=== PATIENT | female | born 1965 | race Caucasian/White ===

== ENCOUNTER 2017-09-17 22:11 | Inpatient (IN) | payer MEDICARE, MEDICAID ==
--- NOTE | 2017-09-17 22:20 | EDM.PDOC ---
ED HPI GENERAL MEDICAL PROBLEM - General Stated Complaint: DIFFICULTY BREATHING [id number] Time Seen by Provider: 09/17/17 22:15 Source of Information: Reports: Patient History Limitations: Reports: No Limitations - History of Present Illness INITIAL COMMENTS - FREE TEXT/NARRATIVE: ED with c/o difficulty breathing, hx asthma COPD a fib. Pneumonia in "july or August" has not returned to baseline. Inarea visiting family, Increasing difficulty over past few days. has been on Steroid taper down today from 40 to 20mg. 2 Neb treatment [employer] without relief. Non productive cough no fever, Is not oxygen dependent. No fever or chills. Chest Pain Score (Numeric/FACES): 3 - Related Data Allergies Allergy/AdvReac Type Severity Reaction Status Date / Time acetaminophen [From Percocet] Allergy Itching Verified 09/17/17 22:24 oxycodone [From Percocet] Allergy Itching Verified 09/17/17 22:24 propoxyphene Allergy Itching Verified 09/17/17 22:24 [From Darvocet-N] Home Meds: Home Meds Aclidinium [place] [Tudorza Pressair] 400 mcg IH DAILY 09/17/17 [History] Albuterol [Proventil HFA] 2 puff INH Q4H PRN 09/17/17 [History] Aspirin [Halfprin] 81 mg PO DAILY 09/17/17 [History] Fluticasone/Vilanterol [Breo Ellipta 100-25 MCG Inhalation Kit] 1 each IH DAILY 09/17/17 [History] amLODIPine Besylate [Norvasc] 2.5 mg PO DAILY 09/17/17 [History] atorvaSTATin [Lipitor] 20 mg PO DAILY 09/17/17 [History] hydrOXYzine HCl [Atarax] 25 mg PO DAILY 09/17/17 [History] predniSONE [Prednisone] 20 mg PO DAILY 09/17/17 [History] ED ROS GENERAL - Review of Systems Review Of Systems: ROS reveals no pertinent complaints other than HPI. ED EXAM, GENERAL - Physical Exam Exam: See Below Exam Limited By: No Limitations General Appearance: Alert, Moderate Distress Eye Exam: Bilateral Eye: EOMI Ears: Normal External Exam Nose: Normal Inspection Throat/Mouth: Normal Inspection Head: Atraumatic, Normocephalic Neck: Normal Inspection Respiratory/Chest: Wheezing (inspiratory, expiratory throughout.) Cardiovascular: Regular Rate, Rhythm, Tachycardia (sinus) GI/Abdominal: Normal Bowel Sounds Extremities: Pedal Edema (1=) Neurological: Alert, Oriented, Normal Cognition Psychiatric: Anxious Course - Vital Signs Last Recorded V/S: Last Vital Signs Temp 98.9 F 09/18/17 04:00 Pulse 113 H 09/18/17 04:00 Resp 24 H 09/18/17 04:00 BP 120/62 09/18/17 04:00 Pulse Ox 95 09/18/17 04:00 - Orders/Labs/Meds Orders: Active Orders 24 hr Category Date Time Status RT Aerosol Therapy [RC] ASDIRECTED Care 09/17/17 22:25 Active RT Aerosol Therapy [RC] ASDIRECTED Care 09/17/17 23:37 Active ABG [BLOOD GAS ARTERIAL] [BG] Stat Lab 09/17/17 22:51 Ordered Medication Orders Albuterol/Ipratropium (Duoneb 3.0-0.5 Mg/3 Ml) 3 ml NEB Q4HRRT [facility] Last Admin: 09/18/17 03:36 Dose: 3 ml Admin: 09/18/17 01:03 Dose: 3 ml Amlodipine Besylate (Norvasc) 5 mg PO DAILY [facility] Atorvastatin Calcium (Lipitor) 10 mg PO BEDTIME [facility] Benzonatate (Tessalon Perles) 100 mg PO QID PRN PRN Reason: Cough Last Admin: 09/18/17 01:50 Dose: 100 mg Guaifenesin/Phenylephrine HCl (Robitussin Dm) 10 ml PO Q6H PRN PRN Reason: Cough Heparin Sodium (Porcine) (Heparin Sodium) 5,000 units SUBCUT Q12H [facility] Last Admin: 09/18/17 01:03 Dose: 5,000 units Azithromycin 500 mg/ Sodium (Chloride) 250 mls @ 250 mls/hr IV Q24H [facility] Last Admin: 09/18/17 01:47 Dose: 250 mls/hr Sodium Chloride (Normal Saline) 1,000 mls @ 125 mls/hr IV ASDIRECTED [facility] Last Admin: 09/18/17 04:32 Dose: 125 mls/hr Levothyroxine Sodium (Levothyroxine) 25 mcg PO ACBREAKFAST [facility] Last Admin: 09/18/17 06:18 Dose: 25 mcg Methylprednisolone Sodium Succinate (Solu-Medrol) 125 mg IVPUSH Q8H [facility] Last Admin: 09/18/17 06:18 Dose: 125 mg Nicotine (Habitrol) 14 mg TRDERM DAILY [facility] Labs: Laboratory Tests 09/17/17 09/17/17 09/17/17 Range/Units 22:25 22:25 22:25 WBC 13.7 H (5.0-10.0) 10^3/uL RBC 5.51 H (4.2-5.4) 10^6/uL Hgb 17.7 H (12.0-16.0) g/dL Hct 51.9 H (37.0-47.0) % MCV 94.2 (80-100) fL MCH 32.1 (27.0-34.0) pg MCHC 34.1 (33.0-35.0) g/dL Plt Count 247 (150-450) 10^3/uL Neut % (Auto) 68.0 (42.2-75.2) % Lymph % (Auto) 22.4 (20.5-50.1) % [place] % (Auto) 9.1 H (2-8) % Eos % (Auto) 0.4 L (1.0-3.0) % Baso % (Auto) 0.1 (0.0-1.0) % D-Dimer, Quantitative 770 H (0-400) ng/mL Sodium (135-145) mmol/L Potassium (3.6-5.0) mmol/L Chloride (101-111) mmol/L Carbon Dioxide (21.0-31.0) mmol/L Anion Gap BUN (7-18) mg/dL Creatinine (0.6-1.3) mg/dL Est Cr Clr Drug Dosing mL/min Estimated GFR (MDRD) BUN/Creatinine Ratio Glucose (74-105) mg/dL Lactic Acid 2.3 H (0.5-2.2) mmol/L Calcium (8.4-10.2) mg/dl Phosphorus (2.5-4.6) mg/dL Magnesium (1.8-2.5) mg/dL Total Bilirubin (0.2-1.0) mg/dL AST (10-42) IU/L ALT (10-60) IU/L Alkaline Phosphatase (42-121) IU/L CK-MB (CK-2) (0.4-4.7) ng/mL Troponin I (0.00-0.02) ng/ml B-Natriuretic Peptide (0-100) pg/ml Total Protein (6.7-8.2) g/dl Albumin (3.2-5.5) g/dl Globulin Albumin/Globulin Ratio 09/17/17 09/17/17 09/17/17 Range/Units 22:55 22:55 22:55 WBC (5.0-10.0) 10^3/uL RBC (4.2-5.4) 10^6/uL Hgb (12.0-16.0) g/dL Hct (37.0-47.0) % MCV (80-100) fL MCH (27.0-34.0) pg MCHC (33.0-35.0) g/dL Plt Count (150-450) 10^3/uL Neut % (Auto) (42.2-75.2) % Lymph % (Auto) (20.5-50.1) % [place] % (Auto) (2-8) % Eos % (Auto) (1.0-3.0) % Baso % (Auto) (0.0-1.0) % D-Dimer, Quantitative (0-400) ng/mL Sodium 138 (135-145) mmol/L Potassium 3.3 L (3.6-5.0) mmol/L Chloride 99 L (101-111) mmol/L Carbon Dioxide 29.0 (21.0-31.0) mmol/L Anion Gap 13.3 BUN 5 L (7-18) mg/dL Creatinine 0.5 L (0.6-1.3) mg/dL Est Cr Clr Drug Dosing 112.36 mL/min Estimated GFR (MDRD) > 60 BUN/Creatinine Ratio 10.00 Glucose 120 H (74-105) mg/dL Lactic Acid (0.5-2.2) mmol/L Calcium 9.5 (8.4-10.2) mg/dl Phosphorus 4.6 (2.5-4.6) mg/dL Magnesium 2.1 (1.8-2.5) mg/dL Total Bilirubin 0.3 (0.2-1.0) mg/dL AST 29 (10-42) IU/L ALT 29 (10-60) IU/L Alkaline Phosphatase 97 (42-121) IU/L CK-MB (CK-2) 1.80 (0.4-4.7) ng/mL Troponin I < 0.02 (0.00-0.02) ng/ml B-Natriuretic Peptide 51 (0-100) pg/ml Total Protein 7.5 (6.7-8.2) g/dl Albumin 4.1 (3.2-5.5) g/dl Globulin 3.4 Albumin/Globulin Ratio 1.21 Meds: Medications Generic Name Dose Route Start Last Admin Trade Name Freq PRN Reason Stop Dose Admin Albuterol/Ipratropium 3 ml 09/18/17 00:41 09/18/17 03:36 Duoneb 3.0-0.5 Mg/3 Ml NEB 3 ml Q4HRRT [facility] Administration Amlodipine Besylate 5 mg 09/18/17 09:00 Norvasc PO DAILY [facility] Atorvastatin Calcium 10 mg 09/18/17 21:00 Lipitor PO BEDTIME [facility] Benzonatate 100 mg 09/18/17 00:57 09/18/17 01:50 Tessalon Perles PO 100 mg QID PRN Administration Cough Guaifenesin/Phenylephrine HCl 10 ml 09/18/17 00:56 Robitussin Dm PO Q6H PRN Cough Heparin Sodium (Porcine) 5,000 units 09/18/17 00:45 09/18/17 01:03 Heparin Sodium SUBCUT 5,000 units Q12H [facility] Administration Azithromycin 500 mg/ Sodium 250 mls @ 250 mls/hr 09/18/17 00:45 09/18/17 01: 47 Chloride IV 250 mls/hr Q24H [facility] Administration Sodium Chloride 1,000 mls @ 125 mls/hr 09/18/17 04:15 09/18/17 04:32 Normal Saline IV 125 mls/hr ASDIRECTED [facility] Administration Levothyroxine Sodium 25 mcg 09/18/17 06:00 09/18/17 06:18 Levothyroxine PO 25 mcg ACBREAKFAST [facility] Administration Methylprednisolone Sodium Succinate 125 mg 09/18/17 07:00 09/18/17 06:18 Solu-Medrol IVPUSH 125 mg Q8H [facility] Administration Nicotine 14 mg 09/18/17 09:00 Habitrol TRDERM DAILY [facility] Discontinued Medications Generic Name Dose Route Start Last Admin Trade Name Freq PRN Reason Stop Dose Admin Albuterol 2.5 mg 09/17/17 23:37 09/17/17 23:47 Proventil Neb Soln NEB 09/17/17 23:38 2.5 mg ONETIME ONE Administration Albuterol/Ipratropium 3 ml 09/17/17 22:24 09/17/17 22:30 Duoneb 3.0-0.5 Mg/3 Ml NEB 09/17/17 22:25 3 ml ONETIME ONE Administration Ceftriaxone Sodium 1 gm 09/18/17 01:12 09/18/17 01:51 Rocephin IVPUSH 09/18/17 01:13 1 gm ONETIME ONE Administration Furosemide 40 mg 09/18/17 00:59 09/18/17 01:52 Lasix IVPUSH 09/18/17 01:00 40 mg NOW ONE Administration Potassium Chloride 20 meq/ 100 mls @ 50 mls/hr 09/18/17 00:50 09/18/17 01:43 Premix IV 09/18/17 02:49 50 mls/hr ONETIME ONE Administration Sodium Chloride 1,000 mls @ 999 mls/hr 09/18/17 01:17 09/18/17 01:43 Normal Saline IV 09/18/17 02:17 999 mls/hr .BOLUS ONE Administration Lorazepam 1 mg 09/17/17 23:23 09/17/17 23:28 Ativan IVPUSH 09/17/17 23:24 1 mg ONETIME ONE Administration Methylprednisolone Sodium Succinate 125 mg 09/17/17 23:09 09/17/17 23:24 Solu-Medrol IVPUSH 09/17/17 23:10 125 mg ONETIME ONE Administration Methylprednisolone Sodium Succinate 125 mg 09/18/17 00:45 09/18/17 01:53 Solu-Medrol IVPUSH Not Given Q8H [facility] - Re-Assessments/Exams Free Text/Narrative Re-Assessment/Exam: 09/18/17 00:20 Initial presentation with tripod, 1-2 word responses, Improved with Duoneb. Continued wheeze with increased effort. Anxious, Improved with Ativan, resting 2 -3 word responses relaxing on cot. Albuterol Neb, Improved exchange coarse wheeze throughout. Cough loosening, nonproductive. TC Dr. Monica DOLL hospitalist accepting patient for admission. Departure - Departure Time of Disposition: 00:20 Disposition: Admitted As Inpatient 65 Condition: Fair Clinical Impression: COPD exacerbation, Hypoxemia, Sinus tachycardia, Respiratory distress - Discharge Information - My Orders Last 24 Hours: My Active Orders 09/17/17 22:25 RT Aerosol Therapy [RC] ASDIRECTED 09/17/17 22:51 ABG [BLOOD GAS ARTERIAL] [BG] Stat 09/17/17 23:37 RT Aerosol Therapy [RC] ASDIRECTED - Assessment/Plan Last 24 Hours: My Active Orders 09/17/17 22:25 RT Aerosol Therapy [RC] ASDIRECTED 09/17/17 22:51 ABG [BLOOD GAS ARTERIAL] [BG] Stat 09/17/17 23:37 RT Aerosol Therapy [RC] ASDIRECTED
[2017-09-17] MEDS ORDERED: Albuterol/Ipratropium 3.0-0.5 MG/3 ML Neb Soln NEB ONE (22:24)
[2017-09-17] MEDS ORDERED: methylPREDNISolone Sodium Succinate 125 MG/2 ML SDV IVPUSH ONE (23:09)
[2017-09-17] MEDS ORDERED: LORazepam 2 MG/ML Syringe IVPUSH ONE (23:23)
[2017-09-17 23:25] LABS: ANION GAP 13.3; CHLORIDE,CL 99 mmol/L (101-111); SODIUM,NA 138 mmol/L (135-145)
[2017-09-17 23:26] LABS: O2 DELIVERY DEVICE NASAL CANNULA
[2017-09-17] MEDS ORDERED: Albuterol 0.083% 2.5 MG/3 ML Neb Soln NEB ONE (23:37)
[2017-09-18] MEDS ORDERED: methylPREDNISolone Sodium Succinate 125 MG/2 ML SDV IVPUSH SCH ×2 (00:45→07:00)
[2017-09-18] MEDS ORDERED: Potassium Chloride 20 MEQ in Premix Bag 1 BAG IV ONE (00:50)
[2017-09-18] MEDS ORDERED: Furosemide 40 MG/4 ML VIAL IVPUSH ONE (00:59)
[2017-09-18] MEDS ORDERED: Sodium Chloride 0.9% 1,000 ML IV SCH ×2 (01:00→04:15)
[2017-09-18] MEDS: Albuterol/Ipratropium 3.0-0.5 MG/3 ML Neb Soln NEB SCH ×7 (01:03→22:59)
[2017-09-18] MEDS: Heparin Sodium 5,000 Units/ML Vial SUBCUT SCH ×2 (01:03→14:33)
--- NOTE | 2017-09-18 01:06 | PCM.HP ---
H&P History of Present Illness - General Date of Service: 09/18/17 Admit Problem/Dx: Admission Diagnosis/Problem Admission Diagnosis/Problem Respiratory failure with hypoxia Source of Information: Patient History Limitations: Reports: No Limitations - History of Present Illness Initial Comments - Free Text/Narative: Patient is 52 y/o F with PMH of tobacco abuse, COPD, PAD who presented to the ER difficulty breathing. She was recently treated for pneumopia in 08/2017 and has not return to baseline. SOB has been getting progressively worse for the past 1 week. Associated with unproductive cough, wheezing, chest pain during cough and reduced exercise tolerance. She denies fever but notes chills. She reports no leg swelling, orthopnea, PND. No calf pain, palpitation. No ill contact. Lives in [place] and visiting family. Life time smoker and has cut down on smoking. No abdominal pain, nauesa, vomiting, diarrhea. Onset of Symptoms: Reports: Gradual Duration of Symptoms: Reports: Day(s):, Getting Worse Location: Reports: Chest Severity: Severe Improves with: Reports: None Worsens with: Reports: Movement Context: Reports: Activity/Exercise Associated Symptoms: Reports: No Other Symptoms, Cough, Fever/Chills, Shortness of Breath Chest Pain Score (Numeric/FACES): 3 - Related Data Allergies/Adverse Reactions: Allergies Allergy/AdvReac Type Severity Reaction Status Date / Time acetaminophen [From Percocet] Allergy Itching Verified 09/17/17 22:24 oxycodone [From Percocet] Allergy Itching Verified 09/17/17 22:24 propoxyphene Allergy Itching Verified 09/17/17 22:24 [From Darvocet-N] Home Medications: Home Meds Aclidinium [place] [Tudorza Pressair] 400 mcg IH DAILY 09/17/17 [History] Albuterol [Proventil HFA] 2 puff INH Q4H PRN 09/17/17 [History] Aspirin [Halfprin] 81 mg PO DAILY 09/17/17 [History] Fluticasone/Vilanterol [Breo Ellipta 100-25 MCG Inhalation Kit] 1 each IH DAILY 09/17/17 [History] amLODIPine Besylate [Norvasc] 2.5 mg PO DAILY 09/17/17 [History] atorvaSTATin [Lipitor] 20 mg PO DAILY 09/17/17 [History] hydrOXYzine HCl [Atarax] 25 mg PO DAILY 09/17/17 [History] predniSONE [Prednisone] 20 mg PO DAILY 09/17/17 [History] Past Medical History Cardiovascular History: Reports: Afib, High Cholesterol, Hypertension Other Cardiovascular History: vascular disease Respiratory History: Reports: Asthma, COPD, Pneumonia, Recurrent Psychiatric History: Reports: Anxiety, Depression Endocrine/Metabolic History: Reports: Hypothyroidism - Infectious Disease History Infectious Disease History: Reports: Chicken Pox - Past Surgical History HEENT Surgical History: Reports: Cataract Surgery Cardiovascular Surgical History: Reports: Vascular Surgery Other Cardiovascular Surgeries/Procedures: aortic bypass GI Surgical History: Reports: Hernia Repair/Other Other Musculoskeletal Surgeries/Procedures:: back surgery Social & Family History - Family History Family Medical History: Noncontributory - Tobacco Use Smoking Status *Q: Current Every Day Smoker Years of Tobacco use: 35 Packs/Tins Daily: 2 Used Tobacco, but Quit: No Second Hand Smoke Exposure: No - Caffeine Use Caffeine Use: Reports: Coffee - Recreational Drug Use Recreational Drug Use: No H&P Review of Systems - Review of Systems: Review Of Systems: See Below General: Reports: No Symptoms, Fever, Fatigue HEENT: Reports: No Symptoms Pulmonary: Reports: No Symptoms, Shortness of Breath, Wheezing, Cough Cardiovascular: Reports: No Symptoms, Palpitations Gastrointestinal: Reports: No Symptoms Genitourinary: Reports: No Symptoms Musculoskeletal: Reports: No Symptoms Skin: Reports: No Symptoms Psychiatric: Reports: No Symptoms Neurological: Reports: No Symptoms Hematologic/Lymphatic: Reports: No Symptoms Immunologic: Reports: No Symptoms Exam - Exam Exam: See Below - Vital Signs Vital Signs: Last Vital Signs Temp 98.9 F 09/18/17 00:16 Pulse 141 H 09/18/17 00:16 Resp 30 H 09/18/17 00:16 BP 145/78 H 09/18/17 00:16 Pulse Ox 91 L 09/18/17 00:16 Weight: 131 lb 9.6 oz - Exam Quality Assessment: Supplemental Oxygen, DVT Prophylaxis General: Alert, Oriented, Cooperative, Moderate Distress HEENT: PERRLA, Hearing Intact, Mucosa Moist & [place], Nares Patent, Normal Nasal Septum, Posterior Pharynx Clear, Conjunctiva Clear, EOMI, EACs Clear, TMs Clear Neck: Supple, Trachea Midline, 2 Lungs: Decreased Breath Sounds, Rales, Wheezing Cardiovascular: Regular Rate, Regular Rhythm, Tachycardia GI/Abdominal Exam: Normal Bowel Sounds, Soft, Non-Tender, No Organomegaly, No Distention, No Abnormal Bruit, No Mass, Pelvis Stable (Female) Exam: Normal External Exam, Normal Speculum Exam, Normal Bimanual Exam Rectal (Female) Exam: Deferred Back Exam: Normal Inspection Extremities: Pedal Edema Skin: Warm, Dry, Intact Neurological: Cranial Nerves Intact, Reflexes Equal Bilateral Neuro Extensive - Mental Status: Alert, Oriented x3, Normal Mood/Affect, Normal Cognition Neuro Extensive - Motor, Sensory, Reflexes: CN II-XII Intact, Normal Gait, Normal Reflexes Psychiatric: Alert, Normal Affect, Normal Mood - Patient Data Lab Results Last 24 hrs: Laboratory Results - last 24 hr 09/17/17 09/17/17 09/17/17 Range/Units 22:25 22:25 22:25 WBC 13.7 H (5.0-10.0) 10^3/uL RBC 5.51 H (4.2-5.4) 10^6/uL Hgb 17.7 H (12.0-16.0) g/dL Hct 51.9 H (37.0-47.0) % MCV 94.2 (80-100) fL MCH 32.1 (27.0-34.0) pg MCHC 34.1 (33.0-35.0) g/dL Plt Count 247 (150-450) 10^3/uL Neut % (Auto) 68.0 (42.2-75.2) % Lymph % (Auto) 22.4 (20.5-50.1) % [place] % (Auto) 9.1 H (2-8) % Eos % (Auto) 0.4 L (1.0-3.0) % Baso % (Auto) 0.1 (0.0-1.0) % D-Dimer, Quantitative 770 H (0-400) ng/mL Sodium (135-145) mmol/L Potassium (3.6-5.0) mmol/L Chloride (101-111) mmol/L Carbon Dioxide (21.0-31.0) mmol/L Anion Gap BUN (7-18) mg/dL Creatinine (0.6-1.3) mg/dL Est Cr Clr Drug Dosing mL/min Estimated GFR (MDRD) BUN/Creatinine Ratio Glucose (74-105) mg/dL Lactic Acid 2.3 H (0.5-2.2) mmol/L Calcium (8.4-10.2) mg/dl Total Bilirubin (0.2-1.0) mg/dL AST (10-42) IU/L ALT (10-60) IU/L Alkaline Phosphatase (42-121) IU/L CK-MB (CK-2) (0.4-4.7) ng/mL Troponin I (0.00-0.02) ng/ml B-Natriuretic Peptide (0-100) pg/ml Total Protein (6.7-8.2) g/dl Albumin (3.2-5.5) g/dl Globulin Albumin/Globulin Ratio 09/17/17 09/17/17 Range/Units 22:55 22:55 WBC (5.0-10.0) 10^3/uL RBC (4.2-5.4) 10^6/uL Hgb (12.0-16.0) g/dL Hct (37.0-47.0) % MCV (80-100) fL MCH (27.0-34.0) pg MCHC (33.0-35.0) g/dL Plt Count (150-450) 10^3/uL Neut % (Auto) (42.2-75.2) % Lymph % (Auto) (20.5-50.1) % [place] % (Auto) (2-8) % Eos % (Auto) (1.0-3.0) % Baso % (Auto) (0.0-1.0) % D-Dimer, Quantitative (0-400) ng/mL Sodium 138 (135-145) mmol/L Potassium 3.3 L (3.6-5.0) mmol/L Chloride 99 L (101-111) mmol/L Carbon Dioxide 29.0 (21.0-31.0) mmol/L Anion Gap 13.3 BUN 5 L (7-18) mg/dL Creatinine 0.5 L (0.6-1.3) mg/dL Est Cr Clr Drug Dosing 112.36 mL/min Estimated GFR (MDRD) > 60 BUN/Creatinine Ratio 10.00 Glucose 120 H (74-105) mg/dL Lactic Acid (0.5-2.2) mmol/L Calcium 9.5 (8.4-10.2) mg/dl Total Bilirubin 0.3 (0.2-1.0) mg/dL AST 29 (10-42) IU/L ALT 29 (10-60) IU/L Alkaline Phosphatase 97 (42-121) IU/L CK-MB (CK-2) 1.80 (0.4-4.7) ng/mL Troponin I < 0.02 (0.00-0.02) ng/ml B-Natriuretic Peptide 51 (0-100) pg/ml Total Protein 7.5 (6.7-8.2) g/dl Albumin 4.1 (3.2-5.5) g/dl Globulin 3.4 Albumin/Globulin Ratio 1.21 Result Diagrams: 09/18/17 07:07 09/18/17 07:07 - Problem List (1) Acute respiratory failure with hypoxia SNOMED Code(s): 20723491, 186839020 ICD Code: J96.01 - ACUTE RESPIRATORY FAILURE WITH HYPOXIA Status: Acute Current Visit: Yes (2) Acute respiratory failure with hypoxia SNOMED Code(s): 23927601, 474961953 ICD Code: J96.01 - ACUTE RESPIRATORY FAILURE WITH HYPOXIA Status: Acute Current Visit: Yes (3) COPD exacerbation SNOMED Code(s): 875945160 ICD Code: J44.1 - CHRONIC OBSTRUCTIVE PULMONARY DISEASE W (ACUTE) EXACERBATION Status: Acute Current Visit: Yes (4) Tachycardia SNOMED Code(s): 1912489 ICD Code: R00.0 - TACHYCARDIA, UNSPECIFIED Status: Acute Current Visit: Yes (5) Sepsis SNOMED Code(s): 80522103 ICD Code: A41.9 - SEPSIS, UNSPECIFIED ORGANISM Status: Acute Current Visit: Yes Problem List Initiated/Reviewed/Updated: Yes Orders Last 24hrs: Active Orders 24 hr Category Date Time Status Patient Status [ADT] Routine ADT 09/18/17 00:34 Ordered Antiembolic Devices [RC] .Routine Care 09/18/17 00:39 Ordered Intake and Output [RC] QSHIFT Care 09/18/17 00:38 Ordered Oxygen Therapy [RC] CONTINUOUS Care 09/18/17 00:38 Ordered Pulse Oximetry [RC] CONTINUOUS Care 09/18/17 00:38 Ordered RT Aerosol Therapy [RC] ASDIRECTED Care 09/17/17 22:25 Active RT Aerosol Therapy [RC] ASDIRECTED Care 09/17/17 23:37 Active RT Aerosol Therapy [RC] ASDIRECTED Care 09/18/17 00:41 Ordered Up With Assistance [RC] ASDIRECTED Care 09/18/17 00:34 Ordered VTE/DVT Education [RC] PER UNIT ROUTINE Care 09/18/17 00:39 Ordered Vital Signs [RC] Q4H Care 09/18/17 00:34 Ordered 2 Gram Sodium Diet [DIET] Diet 09/18/17 Breakfast Ordered ABG [BLOOD GAS ARTERIAL] [BG] Stat Lab 09/17/17 22:51 Ordered BASIC METABOLIC PANEL,BMP [CHEM] Routine Lab 09/18/17 05:00 Ordered CBC W/O DIFF,HEMOGRAM [HEME] Routine Lab 09/18/17 05:00 Ordered CULTURE BLOOD [BC] Stat Lab 09/18/17 00:49 Ordered CULTURE BLOOD [BC] Stat Lab 09/18/17 00:49 Ordered MAGNESIUM [CHEM] Stat Lab 09/18/17 00:49 Ordered PHOSPHORUS [CHEM] Stat Lab 09/18/17 00:50 Ordered Albuterol/Ipratropium [DuoNeb 3.0-0.5 MG/3 ML] Med 09/18/17 00:41 Ordered 3 ml NEB Q4HRRT Azithromycin [Zithromax] 500 mg Med 09/18/17 00:45 Ordered Sodium Chloride 0.9% [Normal Saline] 250 ml IV Q24H Benzonatate [Tessalon Perles] Med 09/18/17 00:57 Ordered 100 mg PO QID PRN Dextromethorphan/guaiFENesin [Robitussin DM] Med 09/18/17 00:56 Ordered 10 ml PO Q6H PRN Furosemide [Lasix] Med 09/18/17 00:59 Once 40 mg IVPUSH NOW ONE Heparin Sodium Med 09/18/17 00:45 Ordered 5,000 units SUBCUT Q12H Levothyroxine Med 09/18/17 06:00 Ordered 25 mcg PO ACBREAKFAST Nicotine [Habitrol] Med 09/18/17 09:00 Ordered 14 mg TRDERM DAILY Potassium Chloride [KCL 20 MEQ in Water 100 ML] 20 meq Med 09/18/17 00:50 Ordered Premix Bag 1 bag IV ONETIME Sodium Chloride 0.9% @ 100 MLS/HR(1,000ml) Med 09/18/17 01:00 Ordered Sodium Chloride 0.9% [Normal Saline] 1,000 ml IV ASDIRECTED amLODIPine [Norvasc] Med 09/18/17 09:00 Ordered 5 mg PO DAILY atorvaSTATin [Lipitor] Med 09/18/17 21:00 Ordered 10 mg PO BEDTIME cefTRIAXone [Rocephin] 1,000 mg Med 09/18/17 00:45 Ordered Sodium Chloride 0.9% [Normal Saline] 100 ml IV Q24H methylPREDNISolone Sod Succ [Solu-MEDROL] Med 09/18/17 00:45 Ordered 125 mg IVPUSH Q8H Blood Culture x2 Reflex Set [OM.PC] Stat Oth 09/18/17 00:49 Ordered DVT/VTE Prophylaxis Reflex [OM.PC] Routine Oth 09/18/17 00:34 Ordered Resuscitation Status Routine Resus Stat 09/18/17 00:34 Ordered Medication Orders Albuterol/Ipratropium (Duoneb 3.0-0.5 Mg/3 Ml) 3 ml NEB Q4HRRT [facility] Amlodipine Besylate (Norvasc) 5 mg PO DAILY [facility] Atorvastatin Calcium (Lipitor) 10 mg PO BEDTIME [facility] Benzonatate (Tessalon Perles) 100 mg PO QID PRN PRN Reason: Cough Furosemide (Lasix) 40 mg IVPUSH NOW ONE Stop: 09/18/17 01:00 Guaifenesin/Phenylephrine HCl (Robitussin Dm) 10 ml PO Q6H PRN PRN Reason: Cough Heparin Sodium (Porcine) (Heparin Sodium) 5,000 units SUBCUT Q12H [facility] Azithromycin 500 mg/ Sodium (Chloride) 250 mls @ 250 mls/hr IV Q24H [facility] Ceftriaxone Sodium 1,000 mg/ (Sodium Chloride) 100 mls @ 200 mls/hr IV Q24H [facility] Potassium Chloride 20 meq/ (Premix) 100 mls @ 50 mls/hr IV ONETIME ONE Stop: 09/18/17 02:49 Sodium Chloride (Normal Saline) 1,000 mls @ 100 mls/hr IV ASDIRECTED [facility] Levothyroxine Sodium (Levothyroxine) 25 mcg PO ACBREAKFAST [facility] Methylprednisolone Sodium Succinate (Solu-Medrol) 125 mg IVPUSH Q8H [facility] Nicotine (Habitrol) 14 mg TRDERM DAILY [facility] Assessment/Plan Comment:: Acute hypoxic/hypercapnic respiratory failure -this is due to COPD exacerbation vs likely unresolved pneumonia -supplemental oxygen and wean off as tolerated -IV abx COPD exacerbation -Duo-Nebs q4h -IV methylprednysolone -Pulmocort nebs -folmoterol -Azithromycin -IS and flutter valve Community acquires Pneumonia -IV ceftriaxone and Azithromycin -sputum for gram stain and culture -blood cx Sepsis due to pneumonia POA -IVF -LActate q4h x 2 -continue IV abx -follow cx Hypokalemia -will replace Continuous tobacco abuse -advised to quit Hypothyroidism -on synthroid HLD -on lipitor Cardiac diet Full code
[2017-09-18] MEDS ORDERED: cefTRIAXone 1 GM Vial IVPUSH ONE (01:12)
[2017-09-18] MEDS ORDERED: Sodium Chloride 0.9% 1,000 ML IV ONE (01:17)
[2017-09-18] MEDS: Azithromycin 500 MG in Sodium Chloride 0.9% 250 ML IV SCH (01:47)
[2017-09-18] MEDS: Benzonatate 100 MG Cap PO PRN (01:50)
[2017-09-18] MEDS: Levothyroxine 25 MCG Tab PO SCH (06:18)
[2017-09-18 07:39] LABS: ANION GAP 13.2; CHLORIDE,CL 99 mmol/L (101-111); SODIUM,NA 139 mmol/L (135-145)
[2017-09-18] MEDS: amLODIPine 5 MG Tab PO SCH (08:04)
[2017-09-18] MEDS: Nicotine 14 MG/24 Hr Patch TRDERM SCH (08:08)
[2017-09-18 08:38] LABS: ALLEN TEST PERFORMED; BASE EXCESS ARTERIAL 3 mmol/L ((-2)-(+3)); BICARBONATE,ARTERIAL 29.3 mmol/L (22-26); O2 SATURATION ARTERIAL 94 % (95-100); PCO2 ARTERIAL 52 mmHg (35-45); PO2 ARTERIAL 74 mmHg (70-100)
[2017-09-18] MEDS: VILANTEROL INH SCH (10:45)
[2017-09-18] MEDS: FLUTICASONE INH SCH (10:45)
[2017-09-18] MEDS: ACLIDINIUM BROMIDE 400 MCG INH SCH (10:46)
[2017-09-18] MEDS: hydrOXYzine HCl 25 MG Tab PO SCH (10:54)
--- NOTE | 2017-09-18 11:09 | PCM.PN ---
- General Info Date of Service: 09/18/17 Admission Dx/Problem (Free Text): Admission Diagnosis/Problem Admission Diagnosis/Problem Respiratory failure with hypoxia Subjective Update: Patient is 52 y/o F with PMH of tobacco abuse, COPD, PAD who presented to the ER difficulty breathing. She was recently treated for pneumopia in 08/2017 and has not return to baseline. SOB has been getting progressively worse for the past 1 week. Associated with unproductive cough, wheezing, chest pain during cough and reduced exercise tolerance. She was admitted for acute hypoxic respiratory failure due to COPD exacerbation vs pneumonia. Looks a ot better this morning. SOB and coughing has improved. Lactate normal now. No new compliant. Still on 3L oxygen. Functional Status: Reports: Pain Controlled - Review of Systems General: Reports: Fatigue, Malaise HEENT: Reports: No Symptoms Pulmonary: Reports: Shortness of Breath, Cough, Wheezing Cardiovascular: Reports: Palpitations Gastrointestinal: Reports: No Symptoms Genitourinary: Reports: No Symptoms Musculoskeletal: Reports: No Symptoms Skin: Reports: No Symptoms Neurological: Reports: No Symptoms Psychiatric: Reports: No Symptoms - Patient Data Vitals - Most Recent: Last Vital Signs Temp 98.7 F 09/18/17 08:00 Pulse 101 H 09/18/17 08:00 Resp 22 H 09/18/17 08:00 BP 94/55 L 09/18/17 08:04 Pulse Ox 99 09/18/17 08:00 Weight - Most Recent: 131 lb 9.6 oz I&O - Last 24 Hours: Intake & Output 09/17/17 09/18/17 09/18/17 22:59 06:59 14:59 Intake Total 1450 Output Total 1700 Balance -250 Lab Results Last 24 Hours: Laboratory Results - last 24 hr 09/17/17 09/17/17 09/17/17 Range/Units 22:25 22:25 22:25 WBC 13.7 H (5.0-10.0) 10^3/uL RBC 5.51 H (4.2-5.4) 10^6/uL Hgb 17.7 H (12.0-16.0) g/dL Hct 51.9 H (37.0-47.0) % MCV 94.2 (80-100) fL MCH 32.1 (27.0-34.0) pg MCHC 34.1 (33.0-35.0) g/dL Plt Count 247 (150-450) 10^3/uL Neut % (Auto) 68.0 (42.2-75.2) % Lymph % (Auto) 22.4 (20.5-50.1) % [place] % (Auto) 9.1 H (2-8) % Eos % (Auto) 0.4 L (1.0-3.0) % Baso % (Auto) 0.1 (0.0-1.0) % D-Dimer, Quantitative 770 H (0-400) ng/mL ABG pH (7.35-7.45) ABG pCO2 (35-45) mmHg ABG pO2 (70-100) mmHg ABG HCO3 (22-26) mmol/L ABG O2 Saturation (95-100) % ABG Base Excess ((-2)-(+3)) mmol/L Jason Test O2 Delivery Device Sodium (135-145) mmol/L Potassium (3.6-5.0) mmol/L Chloride (101-111) mmol/L Carbon Dioxide (21.0-31.0) mmol/L Anion Gap BUN (7-18) mg/dL Creatinine (0.6-1.3) mg/dL Est Cr Clr Drug Dosing mL/min Estimated GFR (MDRD) BUN/Creatinine Ratio Glucose (74-105) mg/dL Lactic Acid 2.3 H (0.5-2.2) mmol/L Calcium (8.4-10.2) mg/dl Phosphorus (2.5-4.6) mg/dL Magnesium (1.8-2.5) mg/dL Total Bilirubin (0.2-1.0) mg/dL AST (10-42) IU/L ALT (10-60) IU/L Alkaline Phosphatase (42-121) IU/L CK-MB (CK-2) (0.4-4.7) ng/mL Troponin I (0.00-0.02) ng/ml B-Natriuretic Peptide (0-100) pg/ml Total Protein (6.7-8.2) g/dl Albumin (3.2-5.5) g/dl Globulin Albumin/Globulin Ratio 09/17/17 09/17/17 09/17/17 Range/Units 22:51 22:55 22:55 WBC (5.0-10.0) 10^3/uL RBC (4.2-5.4) 10^6/uL Hgb (12.0-16.0) g/dL Hct (37.0-47.0) % MCV (80-100) fL MCH (27.0-34.0) pg MCHC (33.0-35.0) g/dL Plt Count (150-450) 10^3/uL Neut % (Auto) (42.2-75.2) % Lymph % (Auto) (20.5-50.1) % [place] % (Auto) (2-8) % Eos % (Auto) (1.0-3.0) % Baso % (Auto) (0.0-1.0) % D-Dimer, Quantitative (0-400) ng/mL ABG pH 7.37 (7.35-7.45) ABG pCO2 52 H (35-45) mmHg ABG pO2 74 (70-100) mmHg ABG HCO3 29.3 H (22-26) mmol/L ABG O2 Saturation 94 L (95-100) % ABG Base Excess 3 ((-2)-(+3)) mmol/L Jason Test Performed O2 Delivery Device Nasal cannula Sodium 138 (135-145) mmol/L Potassium 3.3 L (3.6-5.0) mmol/L Chloride 99 L (101-111) mmol/L Carbon Dioxide 29.0 (21.0-31.0) mmol/L Anion Gap 13.3 BUN 5 L (7-18) mg/dL Creatinine 0.5 L (0.6-1.3) mg/dL Est Cr Clr Drug Dosing 112.36 mL/min Estimated GFR (MDRD) > 60 BUN/Creatinine Ratio 10.00 Glucose 120 H (74-105) mg/dL Lactic Acid (0.5-2.2) mmol/L Calcium 9.5 (8.4-10.2) mg/dl Phosphorus (2.5-4.6) mg/dL Magnesium (1.8-2.5) mg/dL Total Bilirubin 0.3 (0.2-1.0) mg/dL AST 29 (10-42) IU/L ALT 29 (10-60) IU/L Alkaline Phosphatase 97 (42-121) IU/L CK-MB (CK-2) 1.80 (0.4-4.7) ng/mL Troponin I < 0.02 (0.00-0.02) ng/ml B-Natriuretic Peptide 51 (0-100) pg/ml Total Protein 7.5 (6.7-8.2) g/dl Albumin 4.1 (3.2-5.5) g/dl Globulin 3.4 Albumin/Globulin Ratio 1.21 09/17/17 09/18/17 09/18/17 Range/Units 22:55 03:00 07:07 WBC 9.2 (5.0-10.0) 10^3/uL RBC 4.75 (4.2-5.4) 10^6/uL Hgb 15.2 D (12.0-16.0) g/dL Hct 46.5 (37.0-47.0) % MCV 97.9 D (80-100) fL MCH 32.0 (27.0-34.0) pg MCHC 32.7 L (33.0-35.0) g/dL Plt Count 270 (150-450) 10^3/uL Neut % (Auto) (42.2-75.2) % Lymph % (Auto) (20.5-50.1) % [place] % (Auto) (2-8) % Eos % (Auto) (1.0-3.0) % Baso % (Auto) (0.0-1.0) % D-Dimer, Quantitative (0-400) ng/mL ABG pH (7.35-7.45) ABG pCO2 (35-45) mmHg ABG pO2 (70-100) mmHg ABG HCO3 (22-26) mmol/L ABG O2 Saturation (95-100) % ABG Base Excess ((-2)-(+3)) mmol/L Jason Test O2 Delivery Device Sodium (135-145) mmol/L Potassium (3.6-5.0) mmol/L Chloride (101-111) mmol/L Carbon Dioxide (21.0-31.0) mmol/L Anion Gap BUN (7-18) mg/dL Creatinine (0.6-1.3) mg/dL Est Cr Clr Drug Dosing mL/min Estimated GFR (MDRD) BUN/Creatinine Ratio Glucose (74-105) mg/dL Lactic Acid 0.5 (0.5-2.2) mmol/L Calcium (8.4-10.2) mg/dl Phosphorus 4.6 (2.5-4.6) mg/dL Magnesium 2.1 (1.8-2.5) mg/dL Total Bilirubin (0.2-1.0) mg/dL AST (10-42) IU/L ALT (10-60) IU/L Alkaline Phosphatase (42-121) IU/L CK-MB (CK-2) (0.4-4.7) ng/mL Troponin I (0.00-0.02) ng/ml B-Natriuretic Peptide (0-100) pg/ml Total Protein (6.7-8.2) g/dl Albumin (3.2-5.5) g/dl Globulin Albumin/Globulin Ratio 09/18/17 09/18/17 Range/Units 07:07 07:07 WBC (5.0-10.0) 10^3/uL RBC (4.2-5.4) 10^6/uL Hgb (12.0-16.0) g/dL Hct (37.0-47.0) % MCV (80-100) fL MCH (27.0-34.0) pg MCHC (33.0-35.0) g/dL Plt Count (150-450) 10^3/uL Neut % (Auto) (42.2-75.2) % Lymph % (Auto) (20.5-50.1) % [place] % (Auto) (2-8) % Eos % (Auto) (1.0-3.0) % Baso % (Auto) (0.0-1.0) % D-Dimer, Quantitative (0-400) ng/mL ABG pH (7.35-7.45) ABG pCO2 (35-45) mmHg ABG pO2 (70-100) mmHg ABG HCO3 (22-26) mmol/L ABG O2 Saturation (95-100) % ABG Base Excess ((-2)-(+3)) mmol/L Jason Test O2 Delivery Device Sodium 139 (135-145) mmol/L Potassium 4.2 (3.6-5.0) mmol/L Chloride 99 L (101-111) mmol/L Carbon Dioxide 31.0 (21.0-31.0) mmol/L Anion Gap 13.2 BUN 8 (7-18) mg/dL Creatinine 0.5 L (0.6-1.3) mg/dL Est Cr Clr Drug Dosing 112.36 mL/min Estimated GFR (MDRD) > 60 BUN/Creatinine Ratio Glucose 129 H (74-105) mg/dL Lactic Acid 1.1 (0.5-2.2) mmol/L Calcium 8.2 L (8.4-10.2) mg/dl Phosphorus (2.5-4.6) mg/dL Magnesium (1.8-2.5) mg/dL Total Bilirubin (0.2-1.0) mg/dL AST (10-42) IU/L ALT (10-60) IU/L Alkaline Phosphatase (42-121) IU/L CK-MB (CK-2) (0.4-4.7) ng/mL Troponin I (0.00-0.02) ng/ml B-Natriuretic Peptide (0-100) pg/ml Total Protein (6.7-8.2) g/dl Albumin (3.2-5.5) g/dl Globulin Albumin/Globulin Ratio Maninder Results Last 24 Hours: Microbiology 09/17/17 22:55 Anaerobic Blood Culture - Final Blood - Venous 09/17/17 23:00 Anaerobic Blood Culture - Final Blood - Venous - Lab Draw Med Orders - Current: Current Medications Albuterol/Ipratropium (Duoneb 3.0-0.5 Mg/3 Ml) 3 ml NEB Q4HRRT [facility] Last Admin: 09/18/17 10:54 Dose: 3 ml Amlodipine Besylate (Norvasc) 5 mg PO DAILY [facility] Last Admin: 09/18/17 08:04 Dose: 5 mg Atorvastatin Calcium (Lipitor) 10 mg PO BEDTIME [facility] Benzonatate (Tessalon Perles) 100 mg PO QID PRN PRN Reason: Cough Last Admin: 09/18/17 01:50 Dose: 100 mg Guaifenesin/Phenylephrine HCl (Robitussin Dm) 10 ml PO Q6H PRN PRN Reason: Cough Heparin Sodium (Porcine) (Heparin Sodium) 5,000 units SUBCUT Q12H [facility] Last Admin: 09/18/17 01:03 Dose: 5,000 units Hydroxyzine HCl (Atarax) 25 mg PO DAILY [facility] Last Admin: 09/18/17 10:54 Dose: 25 mg Azithromycin 500 mg/ Sodium (Chloride) 250 mls @ 250 mls/hr IV Q24H [facility] Last Admin: 09/18/17 01:47 Dose: 250 mls/hr Sodium Chloride (Normal Saline) 1,000 mls @ 125 mls/hr IV ASDIRECTED [facility] Last Infusion: 09/18/17 09:22 Dose: 100 mls/hr Levothyroxine Sodium (Levothyroxine) 25 mcg PO ACBREAKFAST [facility] Last Admin: 09/18/17 06:18 Dose: 25 mcg Methylprednisolone Sodium Succinate (Solu-Medrol) 125 mg IVPUSH Q8H [facility] Last Admin: 09/18/17 06:18 Dose: 125 mg Nicotine (Habitrol) 14 mg TRDERM DAILY [facility] Last Admin: 09/18/17 08:08 Dose: Not Given Aclidinium [place] [ Tudorza Pressair] 400 Mcg Pt's Own Med 0 each INH DAILY [facility] Last Admin: 09/18/17 10:46 Dose: 1 each Fluticasone/Vilanterol [Breo Ellipta 100-25 Mcg Inh] Pt's Own Med* * 1 each INH DAILY [facility] Last Admin: 09/18/17 10:45 Dose: 1 each Discontinued Medications Albuterol (Proventil Neb Soln) 2.5 mg NEB ONETIME ONE Stop: 09/17/17 23:38 Last Admin: 09/17/17 23:47 Dose: 2.5 mg Albuterol/Ipratropium (Duoneb 3.0-0.5 Mg/3 Ml) 3 ml NEB ONETIME ONE Stop: 09/17/17 22:25 Last Admin: 09/17/17 22:30 Dose: 3 ml Ceftriaxone Sodium (Rocephin) 1 gm IVPUSH ONETIME ONE Stop: 09/18/17 01:13 Last Admin: 09/18/17 01:51 Dose: 1 gm Furosemide (Lasix) 40 mg IVPUSH NOW ONE Stop: 09/18/17 01:00 Last Admin: 09/18/17 01:52 Dose: 40 mg Potassium Chloride 20 meq/ (Premix) 100 mls @ 50 mls/hr IV ONETIME ONE Stop: 09/18/17 02:49 Last Admin: 09/18/17 01:43 Dose: 50 mls/hr Sodium Chloride (Normal Saline) 1,000 mls @ 999 mls/hr IV .BOLUS ONE Stop: 09/18/17 02:17 Last Admin: 09/18/17 01:43 Dose: 999 mls/hr Lorazepam (Ativan) 1 mg IVPUSH ONETIME ONE Stop: 09/17/17 23:24 Last Admin: 09/17/17 23:28 Dose: 1 mg Methylprednisolone Sodium Succinate (Solu-Medrol) 125 mg IVPUSH ONETIME ONE Stop: 09/17/17 23:10 Last Admin: 09/17/17 23:24 Dose: 125 mg Methylprednisolone Sodium Succinate (Solu-Medrol) 125 mg IVPUSH Q8H [facility] Last Admin: 09/18/17 01:53 Dose: Not Given - Exam Quality Assessment: Supplemental Oxygen General: Alert, Oriented HEENT: Pupils Equal, Pupils Reactive, EOMI, Mucous Membr. Moist/[place] Neck: Supple Lungs: Normal Respiratory Effort, Decreased Breath Sounds, Wheezing Cardiovascular: Regular Rate, Regular Rhythm, Tachycardia GI/Abdominal Exam: Normal Bowel Sounds, Soft, Non-Tender, No Organomegaly, No Distention, No Abnormal Bruit, No Mass, Pelvis Stable (Female) Exam: Normal External Exam, Normal Speculum Exam, Normal Bimanual Exam Back Exam: Normal Inspection, Full Range of Motion Extremities: Normal Inspection, Normal Range of Motion, Non-Tender, No Pedal Edema, Normal Capillary Refill Skin: Warm, Dry, Intact Wound/Incisions: Healing Well Neurological: No New Focal Deficit Psy/Mental Status: Alert, Normal Affect, Normal Mood - Problem List & Annotations (1) Acute respiratory failure with hypoxia SNOMED Code(s): 57223403, 163582110 Code(s): J96.01 - ACUTE RESPIRATORY FAILURE WITH HYPOXIA Status: Acute Current Visit: Yes (2) Acute respiratory failure with hypoxia SNOMED Code(s): 63143963, 507725691 Code(s): J96.01 - ACUTE RESPIRATORY FAILURE WITH HYPOXIA Status: Acute Current Visit: Yes (3) COPD exacerbation SNOMED Code(s): 662040932 Code(s): J44.1 - CHRONIC OBSTRUCTIVE PULMONARY DISEASE W (ACUTE) EXACERBATION Status: Acute Current Visit: Yes (4) Tachycardia SNOMED Code(s): 3197727 Code(s): R00.0 - TACHYCARDIA, UNSPECIFIED Status: Acute Current Visit: Yes (5) Sepsis SNOMED Code(s): 72855773 Code(s): A41.9 - SEPSIS, UNSPECIFIED ORGANISM Status: Acute Current Visit : Yes - Problem List Review Problem List Initiated/Reviewed/Updated: Yes - My Orders Last 24 Hours: My Active Orders 09/18/17 00:34 Patient Status [ADT] Routine Up With Assistance [RC] ASDIRECTED Vital Signs [RC] 04,08,12,16,20,00 DVT/VTE Prophylaxis Reflex [OM.PC] Routine Resuscitation Status Routine 09/18/17 00:38 Intake and Output [RC] QSHIFT Oxygen Therapy [RC] CONTINUOUS Pulse Oximetry [RC] CONTINUOUS 09/18/17 00:39 Antiembolic Devices [RC] .Routine VTE/DVT Education [RC] PER UNIT ROUTINE 09/18/17 00:41 RT Aerosol Therapy [RC] ASDIRECTED Albuterol/Ipratropium [DuoNeb 3.0-0.5 MG/3 ML] 3 ml NEB Q4HRRT 09/18/17 00:45 Azithromycin [Zithromax] 500 mg Sodium Chloride 0.9% [Normal Saline] 250 ml IV Q24H Heparin Sodium 5,000 units SUBCUT Q12H 09/18/17 00:49 CULTURE BLOOD [BC] Stat CULTURE BLOOD [BC] Stat Blood Culture x2 Reflex Set [OM.PC] Stat 09/18/17 00:56 Dextromethorphan/guaiFENesin [Robitussin DM] 10 ml PO Q6H PRN 09/18/17 00:57 Benzonatate [Tessalon Perles] 100 mg PO QID PRN 09/18/17 04:15 Sodium Chloride 0.9% [Normal Saline] 1,000 ml IV ASDIRECTED 09/18/17 06:00 Levothyroxine 25 mcg PO ACBREAKFAST 09/18/17 07:00 methylPREDNISolone Sod Succ [Solu-MEDROL] 125 mg IVPUSH Q8H 09/18/17 09:00 Nicotine [Habitrol] 14 mg TRDERM DAILY Patient's Own Medication [Ptom] 0 each INH DAILY Patient's Own Medication [Ptom] 1 each INH DAILY amLODIPine [Norvasc] 5 mg PO DAILY hydrOXYzine HCl [Atarax] 25 mg PO DAILY 09/18/17 21:00 atorvaSTATin [Lipitor] 10 mg PO BEDTIME 09/18/17 Breakfast 2 Gram Sodium Diet [DIET] - Plan Plan:: Acute hypoxic/hypercapnic respiratory failure -this is due to COPD exacerbation vs likely unresolved pneumonia -improving -continue supplemental oxygen and wean off as tolerated -continue IV abx COPD exacerbation -Duo-Nebs q4h -IV methylprednysolone -Pulmocort nebs -folmoterol -Azithromycin -IS and flutter valve Community acquires Pneumonia -continue IV ceftriaxone and Azithromycin -sputum for gram stain and culture -follow blood cx Sepsis due to pneumonia POA -Resolved Hypokalemia -Resolved Continuous tobacco abuse -advised to quit Hypothyroidism -on synthroid HLD -on lipitor Cardiac diet Full code
[2017-09-18] MEDS: methylPREDNISolone Sodium Succinate 125 MG/2 ML SDV IVPUSH SCH ×2 (14:33→23:03)
[2017-09-18] MEDS: Budesonide 0.5 MG/2 ML Neb Susp NEB SCH (18:03)
[2017-09-18] MEDS: atorvaSTATin 10 MG Tab PO SCH (20:56)
[2017-09-18] MEDS: Sodium Chloride 0.9% 10 ML Syringe FLUSH PRN ×2 (20:58→23:02)
[2017-09-18] MEDS: cefTRIAXone 1 GM Vial IVPUSH SCH (20:59)
[2017-09-18] MEDS ORDERED: ALPRAZolam 0.25 MG Tab PO ONE (22:12)
[2017-09-18] MEDS: guaiFENesin/Dextromethorphan 100-10 MG/5 ML Soln 5 ML Cup PO PRN (23:12)
[2017-09-18] MEDS ORDERED: Heparin Sodium 5,000 Units/ML Vial SUBCUT ONE (23:45)
[2017-09-19] MEDS: Sodium Chloride 0.9% 10 ML Syringe FLUSH PRN ×3 (00:42→06:16)
[2017-09-19] MEDS: Azithromycin 500 MG in Sodium Chloride 0.9% 250 ML IV SCH (00:46)
[2017-09-19] MEDS: Albuterol/Ipratropium 3.0-0.5 MG/3 ML Neb Soln NEB SCH ×6 (02:47→22:48)
[2017-09-19] MEDS: methylPREDNISolone Sodium Succinate 125 MG/2 ML SDV IVPUSH SCH ×3 (06:17→22:07)
[2017-09-19] MEDS: Levothyroxine 25 MCG Tab PO SCH (06:20)
[2017-09-19] MEDS: Budesonide 0.5 MG/2 ML Neb Susp NEB SCH ×2 (06:53→19:22)
[2017-09-19] MEDS ORDERED: guaiFENesin/Dextromethorphan 100-10 MG/5 ML Soln 5 ML Cup PO PRN (08:40)
--- NOTE | 2017-09-19 08:58 | PCM.PN ---
- General Info Date of Service: 09/19/17 Admission Dx/Problem (Free Text): Admission Diagnosis/Problem Admission Diagnosis/Problem Respiratory failure with hypoxia and dry cough Subjective Update: Patient is 52 y/o F with PMH of tobacco abuse, COPD, PAD who presented to the ER difficulty breathing. She was recently treated for pneumopia in 08/2017 and has not return to baseline. SOB has been getting progressively worse for the past 1 week. Associated with unproductive cough, wheezing, chest pain during cough and reduced exercise tolerance. She was admitted for acute hypoxic respiratory failure due to COPD exacerbation vs pneumonia. She is feeling better today, still coughing with no sputum production, still on oxygen, No chest pain, No fever or Chill. Has good appetite and slept well last night . Functional Status: Reports: Pain Controlled, Tolerating Diet, Ambulating, Urinating - Review of Systems General: Reports: Weakness, Fatigue, Appetite (good). Denies: Fever, Chills HEENT: Reports: Sore Throat. Denies: Headaches, Sinus Congestion, Rhinitis, Visual Changes Pulmonary: Reports: Shortness of Breath, Cough, Wheezing. Denies: Sputum Cardiovascular: Reports: Dyspnea on Exertion. Denies: Chest Pain, Edema, Lightheadedness Gastrointestinal: Denies: Abdominal Pain, Constipation, Diarrhea, Difficulty Swallowing, Nausea, Vomiting Genitourinary: Denies: Dysuria, Frequency, Burning, Urgency, Flank Pain Musculoskeletal: Denies: Neck Pain, Shoulder Pain, Back Pain, Leg Pain, Joint Swelling Skin: Denies: Cyanosis, Jaundice, Bruising, Pruritis, Rash Neurological: Denies: Confusion, Numbness, Paresthesia, Tremors Psychiatric: Denies: Confusion, Hallucinations - Patient Data Vitals - Most Recent: Last Vital Signs Temp 37.3 C 09/19/17 08:00 Pulse 83 09/19/17 08:00 Resp 20 09/19/17 08:00 BP 110/51 L 09/19/17 08:00 Pulse Ox 92 L 09/19/17 08:00 Weight - Most Recent: 59.693 kg I&O - Last 24 Hours: Intake & Output 09/18/17 09/19/17 09/19/17 22:59 06:59 14:59 Intake Total 400 239 Output Total 900 Balance 400 -661 Maninder Results Last 24 Hours: Microbiology 09/17/17 23:00 Aerobic Blood Culture - Preliminary Blood - Venous - Lab Draw NO GROWTH AFTER 1 DAY Anaerobic Blood Culture - Final 09/17/17 22:55 Aerobic Blood Culture - Preliminary Blood - Venous NO GROWTH AFTER 1 DAY Anaerobic Blood Culture - Final Med Orders - Current: Current Medications Albuterol/Ipratropium (Duoneb 3.0-0.5 Mg/3 Ml) 3 ml NEB Q4HRRT [facility] Last Admin: 09/19/17 06:53 Dose: 3 ml Amlodipine Besylate (Norvasc) 5 mg PO DAILY [facility] Last Admin: 09/18/17 08:04 Dose: 5 mg Atorvastatin Calcium (Lipitor) 10 mg PO BEDTIME [facility] Last Admin: 09/18/17 20:56 Dose: 10 mg Benzonatate (Tessalon Perles) 100 mg PO QID PRN PRN Reason: Cough Last Admin: 09/18/17 01:50 Dose: 100 mg Budesonide (Pulmicort) 0.5 mg NEB BIDRT [facility] Last Admin: 09/19/17 06:53 Dose: 0.5 mg Ceftriaxone Sodium (Rocephin) 1 gm IVPUSH Q24H [facility] Last Admin: 09/18/17 20:59 Dose: 1 gm Guaifenesin/Phenylephrine HCl (Robitussin Dm) 10 ml PO Q6H PRN PRN Reason: Cough Last Admin: 09/18/17 23:12 Dose: 10 ml Guaifenesin/Phenylephrine HCl (Robitussin Dm) 5 ml PO Q4H PRN PRN Reason: Cough Heparin Sodium (Porcine) (Heparin Sodium) 5,000 units SUBCUT Q12H [facility] Hydroxyzine HCl (Atarax) 25 mg PO DAILY [facility] Last Admin: 09/18/17 10:54 Dose: 25 mg Azithromycin 500 mg/ Sodium (Chloride) 250 mls @ 250 mls/hr IV Q24H [facility] Last Admin: 09/19/17 00:46 Dose: 250 mls/hr Levothyroxine Sodium (Levothyroxine) 25 mcg PO ACBREAKFAST [facility] Last Admin: 09/19/17 06:20 Dose: 25 mcg Methylprednisolone Sodium Succinate (Solu-Medrol) 60 mg IVPUSH Q8HR [facility] Nicotine (Habitrol) 14 mg TRDERM DAILY [facility] Last Admin: 09/18/17 08:08 Dose: Not Given Aclidinium [place] [ Tudorza Pressair] 400 Mcg Pt's Own Med 0 each INH DAILY [facility] Last Admin: 09/18/17 10:46 Dose: 1 each Fluticasone/Vilanterol [Breo Ellipta 100-25 Mcg Inh] Pt's Own Med* * 1 each INH DAILY [facility] Last Admin: 09/18/17 10:45 Dose: 1 each Sodium Chloride (Saline Flush) 10 ml FLUSH ASDIRECTED PRN PRN Reason: Keep Vein Open Last Admin: 09/19/17 06:16 Dose: 10 ml Discontinued Medications Albuterol (Proventil Neb Soln) 2.5 mg NEB ONETIME ONE Stop: 09/17/17 23:38 Last Admin: 09/17/17 23:47 Dose: 2.5 mg Albuterol/Ipratropium (Duoneb 3.0-0.5 Mg/3 Ml) 3 ml NEB ONETIME ONE Stop: 09/17/17 22:25 Last Admin: 09/17/17 22:30 Dose: 3 ml Alprazolam (Xanax) 0.25 mg PO ONETIME ONE Stop: 09/18/17 22:13 Last Admin: 09/18/17 22:58 Dose: 0.25 mg Ceftriaxone Sodium (Rocephin) 1 gm IVPUSH ONETIME ONE Stop: 09/18/17 01:13 Last Admin: 09/18/17 01:51 Dose: 1 gm Furosemide (Lasix) 40 mg IVPUSH NOW ONE Stop: 09/18/17 01:00 Last Admin: 09/18/17 01:52 Dose: 40 mg Heparin Sodium (Porcine) (Heparin Sodium) 5,000 units SUBCUT Q12H [facility] Last Admin: 09/18/17 14:33 Dose: 5,000 units Heparin Sodium (Porcine) (Heparin Sodium) 5,000 units SUBCUT ONETIME ONE Stop: 09/18/17 23:46 Last Admin: 09/19/17 00:42 Dose: 5,000 units Potassium Chloride 20 meq/ (Premix) 100 mls @ 50 mls/hr IV ONETIME ONE Stop: 09/18/17 02:49 Last Admin: 09/18/17 01:43 Dose: 50 mls/hr Sodium Chloride (Normal Saline) 1,000 mls @ 999 mls/hr IV .BOLUS ONE Stop: 09/18/17 02:17 Last Admin: 09/18/17 01:43 Dose: 999 mls/hr Sodium Chloride (Normal Saline) 1,000 mls @ 100 mls/hr IV ASDIRECTED [facility] Last Infusion: 09/18/17 14:27 Dose: Infused Lorazepam (Ativan) 1 mg IVPUSH ONETIME ONE Stop: 09/17/17 23:24 Last Admin: 09/17/17 23:28 Dose: 1 mg Methylprednisolone Sodium Succinate (Solu-Medrol) 125 mg IVPUSH ONETIME ONE Stop: 09/17/17 23:10 Last Admin: 09/17/17 23:24 Dose: 125 mg Methylprednisolone Sodium Succinate (Solu-Medrol) 125 mg IVPUSH Q8H [facility] Last Admin: 09/18/17 01:53 Dose: Not Given Methylprednisolone Sodium Succinate (Solu-Medrol) 125 mg IVPUSH Q8H [facility] Last Admin: 09/18/17 06:18 Dose: 125 mg Methylprednisolone Sodium Succinate (Solu-Medrol) 125 mg IVPUSH Q8HR [facility] Last Admin: 09/19/17 06:17 Dose: 125 mg - Exam Quality Assessment: Supplemental Oxygen, DVT Prophylaxis. No: Urine Catheter General: Alert, Oriented, Cooperative, No Acute Distress HEENT: Pupils Equal, Pupils Reactive, Mucous Membr. Moist/[place] Neck: Supple, No JVD, No Thyromegaly. No: Lymphadenopathy Lungs: Clear to Auscultation, Normal Respiratory Effort, Wheezing Cardiovascular: Regular Rate, Regular Rhythm, No Murmurs GI/Abdominal Exam: Normal Bowel Sounds, Soft, Non-Tender. No: Guarding, Rigid, Rebound, Tender (Female) Exam: Deferred Back Exam: Normal Inspection, Full Range of Motion Extremities: Normal Inspection, No Pedal Edema Skin: Warm, Dry, Intact Neurological: No New Focal Deficit Psy/Mental Status: Alert, Normal Affect, Normal Mood - Problem List Review Problem List Initiated/Reviewed/Updated: Yes - My Orders Last 24 Hours: My Active Orders 09/19/17 08:39 Incentive Spirometry [RT Incentive Spirometry] [RC] ASDIRECTED 09/19/17 08:40 Dextromethorphan/guaiFENesin [Robitussin DM] 5 ml PO Q4H PRN 09/19/17 14:00 methylPREDNISolone Sod Succ [Solu-MEDROL] 60 mg IVPUSH Q8HR - Plan Plan:: This is a 52 Y/O F with history of smoking, COPD, PVD admitted with acute Hypoxic respiratory failure Secondary to COPD exacerbation Secondary to Pneumonia 1. Acute hypoxic/hypercapnic respiratory failure -this is due to COPD exacerbation vs likely unresolved pneumonia -She is improving and weaning off supplemental oxygen, pt is not on home oxygen -Will give IS and advise her jerardo use frequently -continue IV abx 2. COPD exacerbation -Continue Duo-Nebs q4h -IV methylprednysolone decrease dose from 125 mfg IV q8 hrs to 60 mg IV Q8 hrs - Continue Pulmocort nebs -Continue folmoterol -Azithromycin 3. COPD excerbation Secondary to Community acquires Pneumonia -continue IV ceftriaxone and Azithromycin -Blood cx showing no growth 4. Current tobacco abuse -advised to quit 5. Hypothyroidism -on synthroid 6. HLD -on lipitor -Cardiac diet Full code
[2017-09-19] MEDS: Heparin Sodium 5,000 Units/ML Vial SUBCUT SCH ×2 (09:36→21:58)
[2017-09-19] MEDS: hydrOXYzine HCl 25 MG Tab PO SCH (09:37)
[2017-09-19] MEDS: amLODIPine 5 MG Tab PO SCH (09:38)
[2017-09-19] MEDS: Nicotine 14 MG/24 Hr Patch TRDERM SCH (09:38)
[2017-09-19] MEDS: ACLIDINIUM BROMIDE 400 MCG INH SCH (09:40)
[2017-09-19] MEDS: VILANTEROL INH SCH (09:40)
[2017-09-19] MEDS: FLUTICASONE INH SCH (09:40)
[2017-09-19] MEDS: cefTRIAXone 1 GM Vial IVPUSH SCH (21:58)
[2017-09-19] MEDS: atorvaSTATin 10 MG Tab PO SCH (21:58)
[2017-09-19] MEDS: guaiFENesin/Dextromethorphan 100-10 MG/5 ML Soln 5 ML Cup PO PRN (22:47)
[2017-09-20] MEDS: Azithromycin 500 MG in Sodium Chloride 0.9% 250 ML IV SCH (00:50)
[2017-09-20] MEDS: Benzonatate 100 MG Cap PO PRN (00:57)
[2017-09-20] MEDS: Albuterol/Ipratropium 3.0-0.5 MG/3 ML Neb Soln NEB SCH ×2 (02:40→07:16)
[2017-09-20] MEDS: Sodium Chloride 0.9% 10 ML Syringe FLUSH PRN (06:09)
[2017-09-20] MEDS: Levothyroxine 25 MCG Tab PO SCH (06:09)
[2017-09-20] MEDS: methylPREDNISolone Sodium Succinate 125 MG/2 ML SDV IVPUSH SCH (06:10)
[2017-09-20] MEDS: Budesonide 0.5 MG/2 ML Neb Susp NEB SCH (07:16)
--- NOTE | 2017-09-20 08:51 | PCM.DCSUM1 ---
Discharge Summary - Hospital Course Free Text/Narrative:: Patient is 52 y/o F with PMH of tobacco abuse, COPD, PAD who presented to the ER with difficulty of breathing. She was recently treated for pneumopia in 2017 and has not return to baseline. SOB has been getting progressively worse for the past 1 week. Associated with productive cough, wheezing, chest pain during cough and reduced exercise tolerance. She was admitted for acute hypoxic respiratory failure due to COPD exacerbation secondary to pneumonia. She is treated with IV Solumedrol and IV abx ( Azithromycin and Ceftriaxone) , she will go home on Prednisone tapering and oral Cefpodoxime 10 days course She is advised to follow with PMD in a week and also she is advise to quit smoking and wanted to offer her help to quit but she din not want any help from us ,she will do by herself She is feeling better today, still coughing with no sputum production, off oxygen, No chest pain, No fever or Chill. Has good appetite and slept well last night and ready to go home. . Diagnosis: Stroke: No - Discharge Data Discharge Date: 09/20/17 Discharge Disposition: Home, Self-Care 01 Condition: Stable - Patient Instructions Diet: Usual Diet as Tolerated Activity: As Tolerated Driving: May Drive Today Showering/Bathing: May Shower Notify Provider of: Fever, Nausea and/or Vomiting Other/Special Instructions: Patient is 52 y/o F with PMH of tobacco abuse, COPD , PAD who presented to the ER with difficulty of breathing. She was recently treated for pneumopia in 08/2017 and has not return to baseline. SOB has been getting progressively worse for the past 1 week. Associated with productive cough, wheezing, chest pain during cough and reduced exercise tolerance. She was admitted for acute hypoxic respiratory failure due to COPD exacerbation secondary to pneumonia. She is treated with IV Solumedrol and IV abx ( Azithromycin and Ceftriaxone) , she will go home on Prednisone tapering and oral Cefpodoxime 10 days course. She is advised to follow with PMD in a week and also she is advise to quit smoking and wanted to offer help to quit but she din not want any help from us she will do by herself. She is feeling better today, still coughing with no sputum production, off oxygen, No chest pain, No fever or Chill. Has good appetite and slept well last night and ready to go home - Discharge Plan Prescriptions/Med Rec: Cefpodoxime Proxetil 200 mg PO BID 10 Days #20 tablet predniSONE [Prednisone] 20 mg PO DAILY #26 tablet Home Medications: Home Meds Aclidinium Mcgrann [Tudorza Pressair] 400 mcg IH DAILY 09/17/17 [History] Albuterol [Proventil HFA] 2 puff INH Q4H PRN 09/17/17 [History] Aspirin [Halfprin] 81 mg PO DAILY 09/17/17 [History] Fluticasone/Vilanterol [Breo Ellipta 100-25 MCG Inhalation Kit] 1 each IH DAILY 09/17/17 [History] amLODIPine Besylate [Norvasc] 2.5 mg PO DAILY 09/17/17 [History] atorvaSTATin [Lipitor] 20 mg PO DAILY 09/17/17 [History] hydrOXYzine HCl [hydrOXYzine] 25 mg PO DAILY 09/17/17 [History] Cefpodoxime Proxetil 200 mg PO BID 10 Days #20 tablet 09/20/17 [Rx] predniSONE [Prednisone] 20 mg PO DAILY #26 tablet 09/20/17 [Rx] Patient Handouts: Chronic Obstructive Pulmonary Disease Exacerbation, Easy-to- Read, Steps to Quit Smoking, [id number], Coping with Quitting Smoking, Acute Respiratory Failure, Adult Referrals: PCP,Not In Area [Primary Care Provider] - - Discharge Summary/Plan Comment DC Time >30 min.: Yes Discharge Summary/Plan Comment: This is a 52 Y/O F with history of smoking, COPD, PVD admitted with acute Hypoxic respiratory failure Secondary to COPD exacerbation Secondary to Pneumonia IMPRESSION and PLAN: 1. Acute hypoxic/hypercapnic respiratory failure -this is due to COPD exacerbation vs likely unresolved pneumonia -She is improving and off supplemental oxygen, -Will give IS and advise her to use frequently at home -continue oral abx 2. COPD exacerbation -Continue Duo-Nebs q4h -Will stop methylprednysolone and will go home on Prednisone tapering 40 mg for 5 days, 30 mg for 5 days, 20 mg for 5 days and 10 mg for 5 days - Continue Pulmocort nebs -Continue folmoterol - Will start Cefpodoxime for 10 days course and follow with PMD in a week 3. COPD excerbation Secondary to Community acquires Pneumonia -continue oral Cefpodoxime -Blood cx showing no growth 4. Current tobacco abuse -advised to quit smoking, wanted to offer help but she does not want any help, will do by herself 5. Hypothyroidism -on synthroid and will continue 6. HLD -Continue lipitor and Cardiac diet 7. Disposition: she will be discharge home today and follow with PMD in a week - General Info Date of Service: 09/20/17 Admission Dx/Problem (Free Text: Admission Diagnosis/Problem Admission Diagnosis/Problem Respiratory failure with hypoxia and dry cough Subjective Update: Today she is feeling better today, still coughing with no sputum production, off oxygen, No chest pain, No fever or Chill. Has good appetite and slept well last night and she will be going home . Functional Status: Reports: Tolerating Diet, Ambulating, Urinating - Review of Systems General: Reports: Weakness, Appetite (good). Denies: Fever, Chills HEENT: Denies: Dysphasia, Eye Pain, Post Nasal Drip, Sinus Congestion, Sore Throat, Visual Changes Pulmonary: Reports: Shortness of Breath, Cough, Sputum, Wheezing Cardiovascular: Reports: Dyspnea on Exertion. Denies: Chest Pain, Edema, Lightheadedness Gastrointestinal: Denies: Abdominal Pain, Difficulty Swallowing, Nausea, Vomiting Genitourinary: Denies: Dysuria, Frequency, Burning, Urgency, Flank Pain Musculoskeletal: Denies: Neck Pain, Leg Pain Skin: Denies: Cyanosis, Jaundice, Bruising, Pruritis, Rash Neurological: Denies: Confusion, Numbness, Tingling, Tremors Psychiatric: Denies: Confusion, Anxiety - Patient Data Vitals - Most Recent: Last Vital Signs Temp 36.5 C 09/20/17 07:29 Pulse 99 09/20/17 07:29 Resp 20 09/20/17 07:29 BP 125/66 09/20/17 07:29 Pulse Ox 95 09/20/17 07:29 Weight - Most Recent: 59.693 kg I&O - Last 24 hours: Intake & Output 09/19/17 09/20/17 09/20/17 22:59 06:59 14:59 Intake Total 320 754 Output Total 900 1300 Balance -580 -546 TIFFANY Results - Last 24 hrs: Microbiology 09/17/17 23:00 Aerobic Blood Culture - Preliminary Blood - Venous - Lab Draw NO GROWTH AFTER 2 DAYS Anaerobic Blood Culture - Final 09/17/17 22:55 Aerobic Blood Culture - Preliminary Blood - Venous NO GROWTH AFTER 2 DAYS Anaerobic Blood Culture - Final Med Orders - Current: Current Medications Albuterol/Ipratropium (Duoneb 3.0-0.5 Mg/3 Ml) 3 ml NEB Q4HRRT [facility] Last Admin: 09/20/17 07:16 Dose: 3 ml Amlodipine Besylate (Norvasc) 5 mg PO DAILY [facility] Last Admin: 09/19/17 09:38 Dose: 5 mg Atorvastatin Calcium (Lipitor) 10 mg PO BEDTIME [facility] Last Admin: 09/19/17 21:58 Dose: 10 mg Benzonatate (Tessalon Perles) 100 mg PO QID PRN PRN Reason: Cough Last Admin: 09/20/17 00:57 Dose: 100 mg Budesonide (Pulmicort) 0.5 mg NEB BIDRT [facility] Last Admin: 09/20/17 07:16 Dose: 0.5 mg Ceftriaxone Sodium (Rocephin) 1 gm IVPUSH Q24H [facility] Last Admin: 09/19/17 21:58 Dose: 1 gm Guaifenesin/Phenylephrine HCl (Robitussin Dm) 10 ml PO Q6H PRN PRN Reason: Cough Last Admin: 09/19/17 22:47 Dose: 10 ml Heparin Sodium (Porcine) (Heparin Sodium) 5,000 units SUBCUT Q12H [facility] Last Admin: 09/19/17 21:58 Dose: 5,000 units Hydroxyzine HCl (Atarax) 25 mg PO DAILY [facility] Last Admin: 09/19/17 09:37 Dose: 25 mg Azithromycin 500 mg/ Sodium (Chloride) 250 mls @ 250 mls/hr IV Q24H [facility] Last Admin: 09/20/17 00:50 Dose: 250 mls/hr Levothyroxine Sodium (Levothyroxine) 25 mcg PO ACBREAKFAST [facility] Last Admin: 09/20/17 06:09 Dose: 25 mcg Methylprednisolone Sodium Succinate (Solu-Medrol) 60 mg IVPUSH Q8HR [facility] Last Admin: 09/20/17 06:10 Dose: 60 mg Nicotine (Habitrol) 14 mg TRDERM DAILY [facility] Last Admin: 09/19/17 09:38 Dose: Not Given Aclidinium Mcgrann [ Tudorza Pressair] 400 Mcg Pt's Own Med 0 each INH DAILY [facility] Last Admin: 09/19/17 09:40 Dose: 1 each Fluticasone/Vilanterol [Breo Ellipta 100-25 Mcg Inh] Pt's Own Med* * 1 each INH DAILY [facility] Last Admin: 09/19/17 09:40 Dose: 1 each Sodium Chloride (Saline Flush) 10 ml FLUSH ASDIRECTED PRN PRN Reason: Keep Vein Open Last Admin: 09/20/17 06:09 Dose: 10 ml Discontinued Medications Albuterol (Proventil Neb Soln) 2.5 mg NEB ONETIME ONE Stop: 09/17/17 23:38 Last Admin: 09/17/17 23:47 Dose: 2.5 mg Albuterol/Ipratropium (Duoneb 3.0-0.5 Mg/3 Ml) 3 ml NEB ONETIME ONE Stop: 09/17/17 22:25 Last Admin: 09/17/17 22:30 Dose: 3 ml Alprazolam (Xanax) 0.25 mg PO ONETIME ONE Stop: 09/18/17 22:13 Last Admin: 09/18/17 22:58 Dose: 0.25 mg Ceftriaxone Sodium (Rocephin) 1 gm IVPUSH ONETIME ONE Stop: 09/18/17 01:13 Last Admin: 09/18/17 01:51 Dose: 1 gm Furosemide (Lasix) 40 mg IVPUSH NOW ONE Stop: 09/18/17 01:00 Last Admin: 09/18/17 01:52 Dose: 40 mg Guaifenesin/Phenylephrine HCl (Robitussin Dm) 5 ml PO Q4H PRN PRN Reason: Cough Heparin Sodium (Porcine) (Heparin Sodium) 5,000 units SUBCUT Q12H [facility] Last Admin: 09/18/17 14:33 Dose: 5,000 units Heparin Sodium (Porcine) (Heparin Sodium) 5,000 units SUBCUT ONETIME ONE Stop: 09/18/17 23:46 Last Admin: 09/19/17 00:42 Dose: 5,000 units Potassium Chloride 20 meq/ (Premix) 100 mls @ 50 mls/hr IV ONETIME ONE Stop: 09/18/17 02:49 Last Admin: 09/18/17 01:43 Dose: 50 mls/hr Sodium Chloride (Normal Saline) 1,000 mls @ 999 mls/hr IV .BOLUS ONE Stop: 09/18/17 02:17 Last Admin: 09/18/17 01:43 Dose: 999 mls/hr Sodium Chloride (Normal Saline) 1,000 mls @ 100 mls/hr IV ASDIRECTED [facility] Last Infusion: 09/18/17 14:27 Dose: Infused Lorazepam (Ativan) 1 mg IVPUSH ONETIME ONE Stop: 09/17/17 23:24 Last Admin: 09/17/17 23:28 Dose: 1 mg Methylprednisolone Sodium Succinate (Solu-Medrol) 125 mg IVPUSH ONETIME ONE Stop: 09/17/17 23:10 Last Admin: 09/17/17 23:24 Dose: 125 mg Methylprednisolone Sodium Succinate (Solu-Medrol) 125 mg IVPUSH Q8H [facility] Last Admin: 09/18/17 01:53 Dose: Not Given Methylprednisolone Sodium Succinate (Solu-Medrol) 125 mg IVPUSH Q8H [facility] Last Admin: 09/18/17 06:18 Dose: 125 mg Methylprednisolone Sodium Succinate (Solu-Medrol) 125 mg IVPUSH Q8HR [facility] Last Admin: 09/19/17 06:17 Dose: 125 mg - Exam Quality Assessment: Reports: DVT Prophylaxis. Denies: Supplemental Oxygen, Urine Catheter General: Reports: Alert, Oriented, Cooperative, No Acute Distress HEENT: Reports: Pupils Equal, EOMI, Mucous Membr. Moist/[place] Neck: Reports: Supple, No JVD, No Thyromegaly. Denies: Lymphadenopathy Lungs: Reports: Clear to Auscultation, Normal Respiratory Effort, Wheezing Cardiovascular: Reports: Regular Rate, Regular Rhythm, No Murmurs GI/Abdominal Exam: Normal Bowel Sounds, Soft, No Distention. No: Guarding, Rigid, Rebound, Tender (Female) Exam: Deferred Rectal (Female) Exam: Deferred Back Exam: Reports: Normal Inspection, Full Range of Motion Extremities: Normal Inspection, No Pedal Edema Skin: Reports: Warm, Dry, Intact Neurological: Reports: No New Focal Deficit Psy/Mental Status: Reports: Alert, Normal Affect, Normal Mood
[2017-09-20] MEDS: hydrOXYzine HCl 25 MG Tab PO SCH (09:06)
[2017-09-20] MEDS: amLODIPine 5 MG Tab PO SCH (09:06)
[2017-09-20] MEDS: Nicotine 14 MG/24 Hr Patch TRDERM SCH (09:07)
[2017-09-20] MEDS: Heparin Sodium 5,000 Units/ML Vial SUBCUT SCH (09:08)
[2017-09-20] MEDS: VILANTEROL INH SCH (09:12)
[2017-09-20] MEDS: FLUTICASONE INH SCH (09:12)
[2017-09-20] MEDS: ACLIDINIUM BROMIDE 400 MCG INH SCH (09:12)
--- NOTE | 2017-09-22 11:44 | EKG ---
09/17/2017 - TRISTAN HARTMAN FATEMEH - TIME: 10:43 p.m. FINDINGS: Sinus tachycardia as per my reading. MODL /[id number]
== END 2017-09-20 10:45 | disposition home or self-care (01) | DRG 871 ==
LOC: DL.ED 22:11 → UNDOADMIN 09-18 00:09 → DL.MS 09-18 00:09
PROVIDERS: ADMIT Student in an Organized Health Care Education/Training Program; ATTEND Student in an Organized Health Care Education/Training Program
DX: A41.9 Sepsis, unspecified organism (principal); J18.9 Pneumonia, unspecified organism; R09.02 Hypoxemia; R06.03 Acute respiratory distress; J96.02 Acute respiratory failure with hypercapnia; J96.01 Acute respiratory failure with hypoxia; J44.0 Chronic obstructive pulmonary disease with (acute) lower respiratory infection; J44.1 Chronic obstructive pulmonary disease with (acute) exacerbation; R65.20 Severe sepsis without septic shock; I48.91 Unspecified atrial fibrillation; E87.6 Hypokalemia; I10 Essential (primary) hypertension; E03.9 Hypothyroidism, unspecified; F17.210 Nicotine dependence, cigarettes, uncomplicated; E78.5 Hyperlipidemia, unspecified; F41.9 Anxiety disorder, unspecified; I73.9 Peripheral vascular disease, unspecified; F32.9 Major depressive disorder, single episode, unspecified; E78.00 Pure hypercholesterolemia, unspecified; R00.0 Tachycardia, unspecified; R06.02 Shortness of breath; Z87.01 Personal history of pneumonia (recurrent); Z88.8 Allergy status to other drugs, medicaments and biological substances; Z79.82 Long term (current) use of aspirin; Z79.52 Long term (current) use of systemic steroids; Z79.899 Other long term (current) drug therapy
CPT/HCPCS: 36415; 71045; 80053; 82553; 83605; 83880; 84484; 85025; 85379; 93005; 93010; 94640 ×2; 96374; 96375; 99284; 99285; J2060; J2930; J7620; 36600; 80048; 82803; 83735; 84100; 85027; 87040; A9270-GY; J0456; J0696; J1644; J1940; J3480; J7030; J7050